=== PATIENT | male | born 1955 | race Caucasian/White ===

== ENCOUNTER 2019-03-01 15:58 | Emergency (ER) | payer OTHER | END 2019-03-01 18:51 | disposition home or self-care (01) | LOC: JERFT 15:58 ==

== ENCOUNTER 2019-06-20 22:39 | Emergency (ER) | payer OTHER ==
[2019-06-20 22:54] VITALS: BP 171/86; PULSE 61; TEMP 98.1; BMI 35.7
--- NOTE | 2019-06-20 23:06 | PDOC ---
History of Present Illness - General Chief Complaint: Chest Pain Stated Complaint: CHEST PAIN Time Seen by Provider: 06/20/19 23:03 History Source: Patient Exam Limitations: No Limitations - History of Present Illness Initial Comments: 06/20/19 23:24 63yo M with PMH of CAD s/p CABGx4 4y ago, CVA 10y ago, HTN, HLD presenting to ED with complaints of chest pain x1d. Pt states he was walking when it started. Describes the pain as touching a bruise. It is left sided, he states that he feels the pain when he thinks about it. Reproduced when touching the chest wall. Does not radiate. Not associated with SOB, exertion, dyspnea, cough, fevers, chills. No recent illnesses, travel, leg swelling, abdominal pain, n/v/d , syncope, weakness, numbness/tingling. He states that the pain feels worse because he keeps pressing on his chest. Has had similar pain in the past and did not go to the hospital. PMD: [employer]: at [employer] PMH: see hpi PSH: see hpi Meds: see med rec Allergies: nkda Social: never smoker. Beta Keesha Contraindications (Core Measure): Yes: Not Prescribed Past History - Past Medical History Allergies/Adverse Reactions: Allergies Allergy/AdvReac Type Severity Reaction Status Date / Time No Known Allergies Allergy Verified 06/20/19 22:51 Home Medications: Ambulatory Orders Acetaminophen 500 mg PO TID #20 tablet 03/01/19 Aspirin [Tez Chewable] 81 mg PO DAILY 03/01/19 Atorvastatin Ca [Lipitor] 20 mg PO DAILY 03/01/19 Esomeprazole Magnesium [Nexium 24Hr] 20 mg PO DAILY 03/01/19 Metoprolol Succinate [Toprol Xl -] 50 mg PO DAILY 03/01/19 Multivitamin [One-Daily Multi-Vitamin] 1 each PO DAILY 03/01/19 COPD: No - Immunization History Immunization Up to Date: No - Psycho Social/Smoking Cessation Hx Smoking History: Never smoked Have you smoked in the past 12 months: No Information on smoking cessation initiated: No Hx Alcohol Use: Yes Drug/Substance Use Hx: No Review of Systems - Review of Systems Constitutional: No: Symptoms Reported HEENTM: No: Symptoms Reported Respiratory: No: Symptoms reported Cardiac (ROS): Yes: See HPI ABD/GI: No: Symptoms Reported : No: Symptoms Reported Musculoskeletal: Yes: See HPI Integumentary: No: Symptoms Reported Neurological: No: Symptoms reported *Physical Exam - Vital Signs Last Vital Signs Temp Pulse Resp BP Pulse Ox 98.1 F 61 20 171/86 H 98 06/20/19 22:49 06/20/19 22:49 06/20/19 22:49 06/20/19 22:49 06/20/19 22:49 - Physical Exam General Appearance: Yes: Appropriately Dressed, Obese. No: Apparent Distress HEENT: positive: EOMI, ATTILA, Normal ENT Inspection Neck: positive: Trachea midline, Supple. negative: Lymphadenopathy (R), Lymphadenopathy (L) Respiratory/Chest: positive: Lungs Clear, Normal Breath Sounds, Other (old bypass scar). negative: Crackles, Rales, Stridor, Wheezing Cardiovascular: positive: Regular Rhythm, Regular Rate, S1, S2. negative: Edema , JVD, Murmur Vascular Pulses: Dorsalis-Pedis (R): 2+, Doralis-Pedis (L): 2+ Gastrointestinal/Abdominal: positive: Normal Bowel Sounds, Soft. negative: Tender Musculoskeletal: negative: CVA Tenderness Extremity: positive: Normal Capillary Refill, Pelvis Stable. negative: Pedal Edema, Swelling, Calf Tenderness Integumentary: positive: Normal Color, Dry, Warm Neurologic: positive: benzene worker II-XII NML intact, Fully Oriented, Alert, Normal Mood/ Affect, Normal Response, Motor Strength 5/5 ED Treatment Course - LABORATORY CBC & Chemistry Diagram: 06/20/19 23:20 06/20/19 23:20 - ADDITIONAL ORDERS Additional order review: Laboratory Results 06/20/19 06/20/19 06/20/19 23:20 23:20 23:20 PT with INR 12.10 INR 1.03 Sodium 141 Potassium 3.6 Chloride 106 Carbon Dioxide 29 Anion Gap 7 L BUN 19.5 H Creatinine 1.1 Est GFR (CKD-EPI)AfAm 82.37 Est GFR (CKD-EPI)NonAf 71.07 Random Glucose 141 H Calcium 9.0 Magnesium 1.9 Total Bilirubin 0.6 AST 23 ALT 48 Alkaline Phosphatase 81 Troponin I < 0.02 Total Protein 7.1 Albumin 4.0 06/20/19 23:20 RBC 4.78 MCV 87.5 MCHC 34.9 RDW 13.5 MPV 8.7 Neutrophils % 65.1 Lymphocytes % 23.4 Monocytes % 9.8 Eosinophils % 1.3 Basophils % 0.4 - RADIOLOGY Radiology Studies Ordered: Category Date Time Status CHEST PA & LAT [RAD] Stat Radiology 06/21/19 00:01 Taken - Medications Given in the ED: ED Medications Discontinued Medications Generic Name Dose Route Start Last Admin Trade Name Freq PRN Reason Stop Dose Admin Acetaminophen 975 mg 06/20/19 23:16 06/20/19 23:35 Tylenol - PO 06/20/19 23:17 975 mg ONCE ONE Administration Methocarbamol 1,000 mg 06/20/19 23:18 06/20/19 23:35 Robaxin - PO 06/20/19 23:19 1,000 mg ONCE ONE Administration Medical Decision Making - Medical Decision Making 06/21/19 06:54 63yo M with PMH of CAD, CABG, HTN, HLD presenting with chest pain. ddx includes but not limited to acs, msk, ptx, pna, mediastinitus, chf, malignancy likley msk given mechanism, reproducibility. will order labs including ekg, trop, cbc, cmp ekg, cxr, tylenol ekg: sinus at 73 with pac, pr 172, qtc 449. no elmer or depressions. no signs of acute ischemia. all labs wnl. cxr normal: no infiltrates, consoldations effusion. pt safe for dc home, has pmd and cardiology f/u. given strict return precautions. does not need repeat trop as pt has been having symptoms for 24h. Discharge - Discharge Information Problems reviewed: Yes Clinical Impression/Diagnosis: Chest pain Qualifiers: Chest pain type: unspecified Qualified Code(s): R07.9 - Chest pain, unspecified Condition: Good Disposition: HOME - Admission No - Follow up/Referral Referrals: Jeimy Stone MD [Primary Care Provider] - - Patient Discharge Instructions Patient Printed Discharge Instructions: DI for Chest Pain Additional Instructions: You were seen in the emergency room today for chest pain. This is most likely musculoskeletal. Your blood work, EKG and Xray are normal. Please continue to take your medications as directed. Remember to follow up with your computer programmer analyst sometime next week. Come back to the emergency room if chest pain is worse, you have difficulty breathing, you develop fever or if any new concerning symptom develops. Thank you - Post Discharge Activity
[2019-06-20] MEDS ORDERED: ACETAMINOPHEN 500 MG TABLET (FP) PO ONE (23:16)
--- NOTE | 2019-06-20 23:17 | PDOC ---
Attending Attestation - Resident Resident Name: Margret Don - ED Attending Attestation I have performed the following: I have examined & evaluated the patient, The case was reviewed & discussed with the resident, I agree w/resident's findings & plan - HPI HPI: 06/20/19 23:16 Pt comes with atypical CP. Sticking sensation at a pinpoint location on his chest. - Physicial Exam PE: 06/21/19 00:10 Pt has let sided musculoskeletal pain in a single area, that is reproducible and palpable. Pt has no cough and no chest pain around the pinpoint area; also no referred pain. - Medical Decision Making 06/20/19 23:54 CBC normal 06/21/19 00:12 chem normal trop and CXR pending 06/21/19 00:18 trop is normal 06/21/19 00:32 CXR normal; sternal wires in place 06/21/19 03:11 Stable for discharge home.
[2019-06-20] MEDS ORDERED: METHOCARBAMOL 500 MG TABLET PO ONE (23:18)
[2019-06-20] MEDS ORDERED: ACETAMINOPHEN 325 MG TABLET (FP) ONE (23:30)
[2019-06-20] MEDS ORDERED: METHOCARBAMOL 500 MG TABLET ONE (23:31)
[2019-06-20 23:42] LABS: BASO % 0.4 % (0-2.0); EOS % 1.3 % (0-4.5); HEMATOCRIT 41.9 % (35.4-49); HEMOGLOBIN 14.6 GM/dL (11.7-16.9); LYMPH % 23.4 % (8-40); MCH 30.5 pg (25.7-33.7); MCHC 34.9 g/dl (32.0-35.9); MEAN CELL VOLUME 87.5 fl (80-96); MEAN PLT VOLUME 8.7 fl (7.5-11.1); MONO % 9.8 % (3.8-10.2); NEUT % 65.1 % (42.8-82.8); PLATELET COUNT 176 K/MM3 (134-434); RBC 4.78 M/mm3 (4.00-5.60); RDW 13.5 % (11.9-15.9)
[2019-06-21 00:10] LABS: BILIRUBIN,TOTAL 0.6 mg/dL (0.2-1); BLOOD UREA NITROGEN 19.5 mg/dL (7-18); CREATININE 1.1 mg/dL (0.55-1.3); MAGNESIUM 1.9 mg/dL (1.8-2.4); POTASSIUM 3.6 mmol/L (3.5-5.1); TOT PROT 7.1 g/dl (6.4-8.2)
[2019-06-21 00:13] LABS: INR 1.03 (0.83-1.09); PROTHROMBIN TIME (PATIENT) 12.1 SEC (9.7-13.0)
--- NOTE | 2019-06-22 16:55 | EKG ---
Test Reason : Blood Pressure : / mmHG Vent. Rate : 073 BPM Atrial Rate : 073 BPM P-R Int : 172 ms QRS Dur : 092 ms QT Int : 408 ms P-R-T Axes : -14 027 061 degrees QTc Int : 449 ms SINUS RHYTHM WITH PREMATURE ATRIAL COMPLEXES OTHERWISE NORMAL ECG NO PREVIOUS ECGS AVAILABLE Confirmed by JASON ALVARADO, TERRELL ([id number]) on 06/22/2019 4:54:50 PM Referred By: Confirmed By:TERRELL GOMEZ MD
== END 2019-06-21 00:39 | disposition home or self-care (01) ==
LOC: JER 22:39
DX: R07.9 Chest pain, unspecified (principal); I25.10 Atherosclerotic heart disease of native coronary artery without angina pectoris; Z95.1 Presence of aortocoronary bypass graft; I10 Essential (primary) hypertension; E78.5 Hyperlipidemia, unspecified; Z86.73 Personal history of transient ischemic attack (TIA), and cerebral infarction without residual deficits
CPT/HCPCS: 36415; 71046-TC-FY; 80053; 83735; 84484; 85025; 85610; 93005; 93010; 99283-25